=== PATIENT | female | born 1985 | race Caucasian/White ===

== ENCOUNTER → 2017-06-07 15:25 | Observation (INO) ==
--- NOTE | 2017-06-07 14:39 | OB/GYN Progress Note ---
Date of Encounter: 06/07/17 Time of Encounter: 14:45 - Assessment and Plan (1) with 36 to 37 weeks completed gestation Current Visit: Yes Status: Acute Patient receives appropriate care with midwives (2) PIH ( induced hypertension), antepartum Current Visit: Yes Status: Acute PIH labs WNL, protein creatinine ratio WNL at 0.17 Denies headaches/epigastric pain/visual disturbances BP on admission: 140s/70s Discussed with rod mill tender Masha Ibarra. Patient safe for discharge home with labor precautions, when to return to triage or call provider. Patient verbalizes understanding. (3) NST (non-stress test) reactive on surveillance Current Visit: Yes Status: Acute Baseline 135 bpm/ moderate/ +accels/ -decels FHT reassuring (4) Invasive ductal carcinoma of right breast Current Visit: Yes Status: Acute (5) History of delivery Current Visit: Yes Status: Acute Subjective - Subjective Principal diagnosis: Gestational hypertension Interval history: 31-year-old female at 36 weeks and 1 day presents to labor and delivery from office for PIH evaluation. Patient had elevated BP of 170/90 in office. Reports good movement. Patient denies leakage of fluid, vaginal bleeding, vaginal discharge. Denies headache, visual disturbances, epigastric pain, or lower extremity edema. She receives care with midwives. Blood Type: A+ GBS: negative Hep B: nonreactive HIV Ig: nonreactive T Pallidum: negative Rubella IgG: Positive Varicella IgG: Positive Antepartum ROS: movement normal Objective - Vital Signs Vital Signs: Intake and Output 06/06/17 06/07/17 06/07/17 23:59 07:59 15:59 Other: Weight 97 kg Patient Weight 06/07/17 23:59 Weight 97 kg - Exam FHR: auscultation normal, category 1 Abdomen: Present: normal appearance, soft, gravid Uterus: Present: normal, firm
[2017-06-07 14:44] LABS: Basophils % 0.4 %; Eosinophils # 0.1 K/mcL (0.0-0.6); Eosinophils % 1.4 %; Hematocrit 34.3 % (35.3-44.9); Hemoglobin 11.2 g/dL (11.5-15.4); Immature Granulocytes % 1.6 % (0-4); Lymphocytes # 1.5 K/mcL (0.6-4.6); Lymphocytes % 14.8 %; Mean Corpuscular HGB Conc 32.7 g/dL (31.6-35.5); Mean Corpuscular Hemoglobin 28.2 pg (28.0-33.3); Mean Corpuscular Volume 86.4 fL (83.0-100.0); Mean Platelet Volume 11.4 fL (9.4-12.4); Monocytes # 0.7 K/mcL (0.0-1.3); Monocytes % 6.9 %; Neutrophils # 7.6 K/mcL (1.6-8.9); Platelet Count 243 K/mcL (140-400); Red Blood Count 3.97 M/mcL (3.82-4.97); Red Cell Distribution Width 13.5 % (11.5-14.5); Segmented Neutrophils % 74.9 %
[2017-06-07 14:50] LABS: Bilirubin,Urine Negative (Negative); Blood,Urine Negative (Negative); Clarity,Urine Cloudy (Clear); Color,Urine Yellow (Yellow); Glucose,Urine (UA) Normal (Normal); Ketones,Urine Negative (Negative); Leukocyte Esterase,Urine Negative (Negative); Nitrite,Urine Negative (Negative); Protein,Urine Negative (Neg-Trace); Specific Gravity,Urine 1.011 (1.010-1.025); Urobilinogen,Urine Normal (Normal)
[2017-06-07 14:52] LABS: Bacteria,Urine None Seen per hpf (None-Few); Hyaline Casts,Urine None Seen per lpf (None-Few); RBC,Urine 0-3 per hpf (0-3); Squamous Epithelial Cell,Urine Many per lpf (None-Few); WBC,Urine 0-3 per hpf (0-3)
[2017-06-07 14:55] LABS: Amphetamine Screen,Urine Negative ng/mL (Cutoff=1000); Barbiturate Screen,Urine Negative ng/mL (Cutoff=200); Benzodiazepines Screen,Urine Negative ng/mL (Cutoff=200); Cannabinoid Screen,Urine Negative ng/mL (Cutoff = 50); Cocaine Screen,Urine Negative ng/mL (Cutoff= 300); Opiate Screen,Urine Negative ng/mL (Cutoff=300); Phencyclidine Screen,Urine Negative ng/mL (Cutoff=25)
[2017-06-07 15:04] LABS: Creatinine,Urine 42 mg/dL; Protein/Creatinine Ratio,Urine 0.17 mg/mg (0.00-0.20)
[2017-06-07 15:05] LABS: Alanine Aminotransferase 8 Units/L (7-52); Aspartate Amino Transferase 13 Units/L (13-39); BUN/Creatinine Ratio 11 (6-26); Blood Urea Nitrogen 5 mg/dL (6-20); Lactate Dehydrogenase 121 Units/L (140-271); Uric Acid 4.4 mg/dL (2.3-7.6); eGFR For African Americans > 60 (> 60); eGFR For Non-African Americans > 60 (> 60)
== END | disposition home or self-care (01) ==
LOC: 1NENULAB
PROVIDERS: ADMIT Obstetrics & Gynecology; ATTEND Obstetrics & Gynecology

== ENCOUNTER 2017-06-13 08:30 | Inpatient (IN) ==
[2017-06-13] MEDS ORDERED: Lidocaine 1% 20 ML MDV INFILT PRN (09:01)
[2017-06-13] MEDS ORDERED: *HR* Nalbuphine 20 MG/ML AMPUL IVP PRN (09:01)
[2017-06-13] MEDS ORDERED: Naloxone 0.4 MG/ML INJ IVP PRN (09:01)
[2017-06-13] MEDS ORDERED: Metoclopramide 10 MG/2 ML VIAL IVP PRN (09:01)
[2017-06-13] MEDS ORDERED: Famotidine 20 MG/2 ML VIAL IVP PRN (09:01)
[2017-06-13] MEDS ORDERED: Ringers Solution, Lactated 1,000 ML IVC SCH (09:15)
--- NOTE | 2017-06-13 10:18 | OB/GYN History & Physical ---
Date of Encounter: 06/13/17 Time of Encounter: 10:15 Assessment and Plan (1) 37 weeks gestation of Current visit: Yes Status: Acute Admit to labor and delivery for IOL Cytotec Consider Intracervical hall, AROM, and Pitocin May have nubain/epidural for pain control GBS negative Anticipate vaginal delivery POC per consult with Dr Mckinney. (2) NST (non-stress test) reactive on surveillance Current visit: No Status: Acute (3) Invasive ductal carcinoma of right breast Current visit: No Status: Acute (4) History of delivery Current visit: No Status: Acute History of Present Illness Chief complaint: Labor Evaluation HPI: Ms. Newman is a 32 year old female at 37 weeks and 0 days presents to labor and delivery for induction of labor secondary to S/P Mastectomy for Invasive Ductal Carcinoma. Patient's receives care with midwives. Patient admits to good movement. Denies vaginal bleeding, contractions, leakage of fluids. She denies headaches, vision disturbances, chest pain, SOB, epigastric pain, dysuria, f/c/n/v, diarrhea. She has no acute complaints or concerns at this time. Patient's complicated by history of delivery at 35 weeks, invasive ductal carcinoma of right breast grade II in this current , plan to start chemotherapy/radiation 2 weeks after delivery with [facility]. Blood type: A+ GBS: negative Hepatitis B antigen: nonreactive HIV Antibody: nonreactive T Pallidum: negative Rubella IgG: positive Varicella IgG: positive Past Med Surg Social Fam HX - Past Medical History Medical history: cancer Psychiatric history: anxiety, depression - Social History Smoking Status: Former smoker Smokeless Tobacco Status: No Alcohol use: none Drug use: none - Family History Mother Living Status: Hx Family Cancer: Yes Obstetrical History - Pregnancies : 5 Para: 2 Term: 1 : 1 Ab's: 2 Livin Medications and Allergies Ferrous Sulfate [Ferrous Sulfate] 1 tab .ROUTE DAILY 06/07/17 [History] Vit/Iron Fumarate/FA [ Tablet] 1 tab PO DAILY 06/07/17 [History ] 3 Allergy/AdvReac Type Severity Reaction Status Date / Time pseudoephedrine Allergy Anaphylaxis [facility]07[facility]17 [facility] Review of System OB All systems PM: reviewed and no additional remarkable complaints except as stated - Constitutional Constitutional ROS IM: as per HPI - Cardiovascular Cardiovascular: as per HPI - Respiratory Respiratory: as per HPI - Gastrointestinal Gastrointestinal: as per HPI - Genitourinary Genitourinary: as per HPI - Neurological Nerological: no headache(s) Exam - Constitutional Constitutional: well developed, well nourished, no acute distress, average body habitus - HEENT HEENT: Normocephaly - Neck Neck exam: full ROM - Lungs Respiratory exam: CTAB - Cardiovascular Cardiovascular exam: RRR, +S1, +S2 - Abdomen Abdomen: Present: bowel sounds normal, gravid, non tender - Extremities Extremities exam: full ROM, normal capillary refill, normal inspection, radial pulses palpable and symmetrical Deep Tendon Reflex Grade: 2+ Normal - Vagina Vagina: Present: normal moisture - Cervix Dilation: 0 (FT) Effacement: 50 Station: -2 - Uterus Uterus exam: Present: normal size (nontender, soft), normal contour Results All other labs normal. - VTE Reasons for not Prescribing Prophylaxis: Treatment not Indicated - Low risk for VTE - Attending Attestation I examined this patient and my medical decision-making was reviewed with the Resident Physician. I agree with the documented findings, disposition and treatment plan as described. Ju Marte CNM
[2017-06-13 11:10] LABS: Basophils # 0.1 K/mcL (0.0-0.2); Basophils % 0.4 %; Eosinophils # 0.1 K/mcL (0.0-0.6); Hematocrit 34.9 % (35.3-44.9); Hemoglobin 11.4 g/dL (11.5-15.4); Immature Granulocytes % 1.5 % (0-4); Lymphocytes # 1.5 K/mcL (0.6-4.6); Lymphocytes % 11.8 %; Mean Corpuscular HGB Conc 32.7 g/dL (31.6-35.5); Mean Corpuscular Hemoglobin 28.6 pg (28.0-33.3); Mean Corpuscular Volume 87.7 fL (83.0-100.0); Mean Platelet Volume 11.5 fL (9.4-12.4); Monocytes # 0.6 K/mcL (0.0-1.3); Monocytes % 4.9 %; Platelet Count 221 K/mcL (140-400); Red Blood Count 3.98 M/mcL (3.82-4.97); Red Cell Distribution Width 13.8 % (11.5-14.5); Segmented Neutrophils % 80.4 %
[2017-06-13] MEDS: miSOPROStol 25 MCG TABLET PO PRN ×2 (11:15→15:55)
[2017-06-13 11:16] LABS: Amphetamine Screen,Urine Negative ng/mL (Cutoff=1000); Barbiturate Screen,Urine Negative ng/mL (Cutoff=200); Benzodiazepines Screen,Urine Negative ng/mL (Cutoff=200); Cannabinoid Screen,Urine Negative ng/mL (Cutoff = 50); Cocaine Screen,Urine Negative ng/mL (Cutoff= 300); Opiate Screen,Urine Negative ng/mL (Cutoff=300); Phencyclidine Screen,Urine Negative ng/mL (Cutoff=25)
[2017-06-13] MEDS ORDERED: Ondansetron 4 MG/2 ML VIAL IVP PRN (15:31)
--- NOTE | 2017-06-13 16:01 | OB Labor Progress Note ---
Date of Encounter: 06/13/17 Time of Encounter: 15:58 Labor Progress Note - Subjective Subjective: Patient doing well in bed. States pain is a 1 or 2 out of ten - Vital Signs Vital Signs: VSS - Cervix Cervix: 1-2/80/-2 - Heart Tones Heart Tones: 135 category I - [place]: Irregular contractions - Interventions Interventions: Placed intracervical hall bulb with 45ml of sterile water without difficulty Patient and fetus tolerated well. - Plan Plan: Continue routine labor management Second dose of oral cytotec GBS negative Consider AROM and/or pitocin after hall bulb Patient may have nubain/epidural for pain control Anticipate vaginal delivery POC per consult with Dr Mckinney.
[2017-06-13] MEDS ORDERED: *HR* FentaNYL (PF) 100 MCG/2 ML VIAL EP ONE (20:41)
[2017-06-13] MEDS ORDERED: Bupivacaine-MPF 0.25% 10 ML VIAL EP ONE (20:41)
[2017-06-13] MEDS ORDERED: Bupivacaine-MPF 0.25% 10 ML VIAL ONE (20:43)
[2017-06-13] MEDS ORDERED: *HR* FentaNYL (PF) 100 MCG/2 ML VIAL ONE (20:43)
[2017-06-13] MEDS ORDERED: Epidural Premix (fent/bupiv) 110 ML EP SCH (20:45)
[2017-06-13] MEDS ORDERED: Epidural Premix (fent/bupiv) 110 ML EP ONE (20:46)
--- NOTE | 2017-06-13 21:19 | Anesthesia Evaluation PreOp ---
Date of Encounter: 06/13/17 Time of Encounter: 20:45 - Past History Planned Operation: DELLA Cardiac History: Other (heart murmor determined to be benign per echo) Pulmonary History: Denies Any Significant HX STATION USHER History: Denies Any Significant HX Other Medical History: Other (active breast cancer) Anesthesia History: No Prior Anesthetic Complications (denies personal and family h/o GA complications), Past Anesthesia (DELLA x 2 that weren't effective, according to patient) : Yes Test: Positive Alcohol Use: none Drug use: none Medications and Allergies Ferrous Sulfate [Ferrous Sulfate] 1 tab .ROUTE DAILY 06/07/17 [History] Vit/Iron Fumarate/FA [ Tablet] 1 tab PO DAILY 06/07/17 [History ] 3 Allergy/AdvReac Type Severity Reaction Status Date / Time pseudoephedrine Allergy Anaphylaxis Verified 06/07/17 13:53 [From [facility]] - Meds/Allergy Pre-op Review Medications Reviewed: Yes Allergies Reviewed: Yes Beta Blockers on Current Med List: No Anesthesia Results - Labs 06/13/17 11:00 Anesthesia Exam 134/78, HR 98, RR 14 Height: 1.6m Weight: 97kg NPO (# of Hours): solids > 8hrs Pain Scale: 1 Pain Scale Used: Numeric (1 - 10) - HEENT Pupil (Motor): Pupils equal Mallampati: I Teeth: Normal Oral Opening: Greater than 3 - STATION USHER LOC: Oriented STATION USHER Motor: Normal RUE, Normal LUE, Normal RLE, Normal LLE, Normal Face STATION USHER Sensory: Normal: RUE, LUE, RLE, LLE, Face - Cardiac Rhythm: Regular Murmur: None - Pulmonary Breath Sounds: bilateral Clear Respiratory Effort: Symmetrical Anesthesia Assess/Plan ASA Score: 3 (active cancer) Modified [place] Scale for Level of Consciousness: Cooperative, oriented, and tranquil Anesthetic Plan: Regional Autologous Blood: No Monitoring Plan: Standard Monitors Recovery Plan: Other
--- NOTE | 2017-06-13 21:22 | Anesthesia Procedures ---
Date of Encounter: 06/13/17 Time of Encounter: 21:21 Procedures: Anesthesia - Epidural/Spinal Patient ID/Chart reviewed: Yes Patient examined: Yes OB Eval: Gestational age: 37 weeks 0 days OB Eval: : 5 OB Eval: Hx Para: 2 OB Eval: Dilated at (cm): 4 OB Eval: Contractions: Non-stressed pattern Consent Obtained: Yes Supplemental Oxygen: None/Room Air Site Prep: Aseptic Technique, Sterile prep and drape, Povidone-Iodine 1% Patient position: upright Local Anesthetic: Lidocaine 1% Amount of Local Anesthetic used: 3 Touhy Needle Gauge: 18 Touhy Needle Depth (cm): 6 Catheter Depth at Skin (cm): 11 Test Dose (1.5% Lido + Epi): Volume given (mls): 5 Test Dose Result: Negative Loading Dose: 0.25% Marcaine (mls): 5 Loading Dose: Fentanyl (mcg): 100 Loading Dose Administered: Thru Catheter Infusion Med: 0.125% Bupivacaine w/ 2 mcg/ml Fentanyl Infusion Rate (mls/hr): [address]: Tegaderm, Tape Interspace Used: L4-L5 Loss of Resistance (ANASTASIA): Yes Blood: No CSF: No Paresthesia: No Procedure: successful x 1st attempt; patient tolerated well Vitals + FHT's: please see Jax ANG's electronic records for VS entry
--- NOTE | 2017-06-13 22:46 | OB Labor Progress Note ---
Date of Encounter: 06/13/17 Time of Encounter: 22:43 Labor Progress Note - Subjective Subjective: Patient resting comfortably in bed after epidural. - Vital Signs Vital Signs: VSS - Cervix Cervix: 4/80/-2 - Heart Tones Heart Tones: 135 baseline category I - [place]: Contractions every 2-4 minutes - Interventions Interventions: AROM for clear fluid, IUPC, and FSE placed without difficulty. Fetus and patient tolerated well. - Plan Plan: Continue routine labor management GBS negative Consider pitocin if needed for labor augmentation Encourage frequent position changes Anticipate vaginal delivery POC per consult with Dr Mckinney.
[2017-06-13] MEDS: Oxytocin 20 units/ LR 1000 mL 20 UNIT/1,000 ML BAG IVC SCH (23:40)
[2017-06-14] MEDS ORDERED: Epidural Premix (fent/bupiv) 110 ML EP ONE ×2 (02:10→07:17)
[2017-06-14] MEDS ORDERED: 0.9 % Sodium Chloride 1,000 ML ONE (05:00)
--- NOTE | 2017-06-14 06:07 | Anesthesia Progress Note ---
Date of Encounter: 06/14/17 Time of Encounter: 06:05 Anesthesia Note - Note Note: Called to patient bedside to evaluate breakthrough labor pain; patient describes bilateral pelvic floor pain that is 4-5/10 intensity. 5mL of 0.25% bupivicaine administered via epidural catheter. Patient reports minimal improvement in pain level. Patient reports B/L LE paresis. 06/14/17 06:05
[2017-06-14] MEDS ORDERED: *HR* Ropivacaine/PF 0.5% 20 ML VIAL ONE (09:00)
--- NOTE | 2017-06-14 09:15 | Anesthesia Progress Note ---
Date of Encounter: 06/14/17 Time of Encounter: 09:13 Anesthesia Note - Note Note: 06/14/17 09:13 Called to patient bedside with complaints of pain in pelvic floor of 5 of 10. Ropivicaine 0.5% 7ml bolus administered. Pt stating that she has used additional pump boluses fairly consistentlyl. Epidural pump increased from 14 to 16ml/hr. VSS and FHT stable.
--- NOTE | 2017-06-14 10:43 | OB/GYN Procedure Note ---
Delivery - Delivery Date: 06/14/17 Provider: Maegan Elizalde (Amanda Toro, PGY2) Intrapartum events: none Delivery induction: AROM, oxytocin, hall, misoprostol Delivery monitor: external FHT, external uterine, internal FHT, internal uterine Anesthesia: epidural Estimated Blood Loss: 450 - (s) A Delivery Date: 06/14/17 Delivery Time: 10:00 Presentation: vertex Position: OA Route of delivery: Gender: Male Viability: Viable Pounds: 6 Ounces: 14 Weight Gram: 3105 kg at 1 minute: 8 at 5 mins: 9 Shoulder Dystocia: not encountered Specimens collected: cord blood Placenta: spontaneous Cord: nuchal cord (x2), 3 umbilical vessels, nuchal reduced - Repair Episiotomy: none Laceration Description: Perineal - 2nd Degree - Complications Delivery complications: none Delivery comments: Induction of labor for breast cancer diagnosis and need to initiate chemotherapy treatment. Induction with pitocin, cytotec, cervical hall. Progressed to complete, maternal bearing down efforts to of live born male. Vertex delivered OA, double nuchal cord identified and manually reduced. Shoulders and body easily followed with compound presentation of right hand next to cheek. No shoulder distocia encountered. placed on maternal abdomen for drying and stimulation. APGARS 8/9. Placenta delivered spontaneously (Gabriel) and was complete upon inspection. Fundus massaged until firm, pitocin was started per policy. Second degree perineal laceration repaired with 3-0 vicryl in the usual fashion. EBL 450. All sponge and needle counts correct. Mother and left bonding in skin to skin. Amanda Toro PGY2 present and assisted with delivery and repair. - Disposition Mom disposition: stable in LDR disposition: stable in LDR
[2017-06-14] MEDS ORDERED: Lanolin 28 GM TUBE TP PRN (11:16)
[2017-06-14] MEDS ORDERED: Benzocaine/Menthol 56 GM AEROSOL SPRAY TP PRN (11:16)
[2017-06-14] MEDS ORDERED: Oxytocin 20 units/ LR 1000 mL 20 UNIT/1,000 ML BAG IVC SCH (11:16)
[2017-06-14] MEDS: Oxytocin 20 units/ LR 1000 mL 20 UNIT/1,000 ML BAG IVC SCH (11:18)
[2017-06-14] MEDS: Ibuprofen 600 MG TABLET PO PRN ×2 (14:00→20:34)
[2017-06-14] MEDS: Acetaminophen 325 MG TABLET PO PRN (18:16)
[2017-06-15] MEDS: Acetaminophen 325 MG TABLET PO PRN ×2 (00:28→16:04)
[2017-06-15 04:38] LABS: Basophils # 0.1 K/mcL (0.0-0.2); Basophils % 0.4 %; Eosinophils # 0.4 K/mcL (0.0-0.6); Eosinophils % 2.5 %; Hematocrit 29.2 % (35.3-44.9); Immature Granulocytes % 0.7 % (0-4); Lymphocytes # 2.5 K/mcL (0.6-4.6); Lymphocytes % 17.3 %; Mean Corpuscular HGB Conc 32.9 g/dL (31.6-35.5); Mean Corpuscular Hemoglobin 28.7 pg (28.0-33.3); Mean Corpuscular Volume 87.2 fL (83.0-100.0); Mean Platelet Volume 11.8 fL (9.4-12.4); Monocytes # 1.3 K/mcL (0.0-1.3); Monocytes % 8.5 %; Neutrophils # 10.4 K/mcL (1.6-8.9); Platelet Count 182 K/mcL (140-400); Red Blood Count 3.35 M/mcL (3.82-4.97); Red Cell Distribution Width 14.1 % (11.5-14.5); Segmented Neutrophils % 70.6 %
[2017-06-15 04:40] LABS: Hemoglobin 9.6 g/dL (11.5-15.4)
[2017-06-15] MEDS: Ibuprofen 600 MG TABLET PO PRN ×3 (06:25→20:51)
[2017-06-15] MEDS: Prenatal Vit/FA 1 EACH TABLET PO SCH (08:07)
--- NOTE | 2017-06-15 11:03 | OB/GYN Progress Note ---
Date of Encounter: 06/15/17 Time of Encounter: 10:59 - Assessment and Plan (1) Normal vaginal delivery Current Visit: Yes Status: Acute PPD #1 Continue routine care Pain well controlled with by mouth meds Ice to perineum when necessary Dermoplast to perineum when necessary Lochia light Requesting discharge tomorrow (2) Invasive ductal carcinoma of right breast Current Visit: Yes Status: Acute Subjective - Subjective Interval history: Feeling well. No dizziness. No perineal discomfort. Cramping minimal, using ibuprofen. Bottlefeeding . Voiding without difficulty. Passing flatus, has had BM. Tolerating regular diet. Patient reports: appetite normal, voiding normally, pain well controlled, ambulating normally [place]: doing well, bottle feeding Objective - Latest Vital Signs Latest vital signs: Vital Signs Temp Pulse Pulse Resp BP Pulse Ox 06/15/17 08:11 98.6 F 95 16 116/73 97 06/15/17 03:55 14 06/15/17 03:40 98.0 F 75 16 106/70 97 06/14/17 20:30 80 14 06/14/17 19:39 97.9 F 81 16 119/76 98 06/14/17 14:48 98.9 F 80 16 115/69 97 06/14/17 12:40 98.6 F 94 16 130/78 97 Intake and Output 06/14/17 06/15/17 06/15/17 23:59 07:59 15:59 Intake Total 240 / 240 500 / 500 Output Total 1620 / 1620 Balance -1380 / -1380 500 / 500 Intake: Oral 240 / 240 500 / 500 Output: Urine 1620 / 1620 Other: Weight 95.753 kg Patient Weight 06/15/17 23:59 Weight 95.753 kg - Exam Lungs: bilateral: normal Chest: Normal S1, Normal S2 Extremities: Present: normal Abdomen: Present: normal appearance, soft Uterus: Present: normal, firm Uterus Position: At Umbilicus, Midline - Labs Labs: Laboratory Results - last 24 hr 06/15/17 04:18 WBC 14.7 H RBC 3.35 L Hgb 9.6 L D Hct 29.2 L MCV 87.2 MCH 28.7 MCHC 32.9 RDW 14.1 Plt Count 182 MPV 11.8 Immature Gran % 0.7 Seg Neutrophils % 70.6 Lymphocytes % 17.3 Monocytes % 8.5 Eosinophils % 2.5 Basophils % 0.4 Neutrophils # 10.4 H Lymphocytes # 2.5 Monocytes # 1.3 Eosinophils # 0.4 Basophils # 0.1
[2017-06-16] MEDS: Ibuprofen 600 MG TABLET PO PRN ×2 (02:43→10:11)
[2017-06-16] MEDS: Acetaminophen 325 MG TABLET PO PRN (07:55)
[2017-06-16] MEDS: Prenatal Vit/FA 1 EACH TABLET PO SCH (07:56)
[2017-06-16 08:09] VITALS: BP 136/86
--- NOTE | 2017-06-16 08:56 | Discharge Summary ---
Date of Encounter: 06/16/17 Time of Encounter: 08:54 - Discharge Diagnosis (1) anemia Priority: Secondary Status: Acute Comments: will discharge home on iron (2) Invasive ductal carcinoma of right breast Priority: Primary Status: Acute Comments: Treatment plan in place with KENIA Cardoza. (3) Normal vaginal delivery Priority: Primary Status: Acute Comments: Pt states pain well managed on po pain medication. Voiding and stooling without difficulty, . desires discharge - Discharge Medications Prescriptions: Ibuprofen [Motrin] 600 mg PO Q6HR PRN #60 tablet PRN Reason: Cramping Docusate [Colace] 100 mg PO BID #60 capsule Ferrous Sulfate 325 mg PO DAILY #60 tablet Home Medications: Ferrous Sulfate 1 tab .ROUTE DAILY 06/07/17 [History] Acetaminophen [Tylenol] 650 mg PO Q6HR PRN tablet 06/16/17 [Rx] Benzocaine/Menthol [place] [Dermoplast Stanton] 1 appl TP QID PRN aerosol 06/16/17 [Rx] Docusate [Colace] 100 mg PO BID #60 capsule 06/16/17 [Rx] Ferrous Sulfate 325 mg PO DAILY #60 tablet 06/16/17 [Rx] Ibuprofen [Motrin] 600 mg PO Q6HR PRN #60 tablet 06/16/17 [Rx] Lanolin 1 appl TP QID PRN tube 06/16/17 [Rx] Vit/FA 1 each PO DAILY tablet 06/16/17 [Rx] Allergies/Adverse Reactions: 3 Allergy/AdvReac Type Severity Reaction Status Date / Time pseudoephedrine Allergy Anaphylaxis Verified 06/07/17 13:53 [From [facility]] Data Procedures and tests throughout hospitalization: Laboratory Tests 06/13/17 06/13/17 06/14/17 11:00 11:00 01:10 WBC 12.4 H RBC 3.98 Hgb 11.4 L Hct 34.9 L MCV 87.7 MCH 28.6 MCHC 32.7 RDW 13.8 Plt Count 221 MPV 11.5 Immature Gran % 1.5 Seg Neutrophils % 80.4 Lymphocytes % 11.8 Monocytes % 4.9 Eosinophils % 1.0 Basophils % 0.4 Neutrophils # 10.0 H Lymphocytes # 1.5 Monocytes # 0.6 Eosinophils # 0.1 Basophils # 0.1 Urine Opiates Screen Negative Ur Barbiturates Screen Negative Ur Phencyclidine Scrn Negative Ur Amphetamines Screen Negative U Benzodiazepines Scrn Negative Urine Cocaine Screen Negative U Marijuana (THC) Screen Negative Blood Type A POSITIVE Antibody Screen NEGATIVE Crossmatch See Detail 06/15/17 04:18 WBC 14.7 H RBC 3.35 L Hgb 9.6 L D Hct 29.2 L MCV 87.2 MCH 28.7 MCHC 32.9 RDW 14.1 Plt Count 182 MPV 11.8 Immature Gran % 0.7 Seg Neutrophils % 70.6 Lymphocytes % 17.3 Monocytes % 8.5 Eosinophils % 2.5 Basophils % 0.4 Neutrophils # 10.4 H Lymphocytes # 2.5 Monocytes # 1.3 Eosinophils # 0.4 Basophils # 0.1 Urine Opiates Screen Ur Barbiturates Screen Ur Phencyclidine Scrn Ur Amphetamines Screen U Benzodiazepines Scrn Urine Cocaine Screen U Marijuana (THC) Screen Blood Type Antibody Screen Crossmatch Date of admission: 06/13/17 08:47 Primary care physician: PCP MANNY Consults: 06/14/17 11:16 Consult to Superintendent Transportation [CONS] Routine Comment: Vaginal delivery, consult needed Discharging clinician: Maegan Elizalde Anticipated date of discharge: 06/16/17 - Patient Status Disposition: Home, Self-Care Condition: Good Functional capacity at discharge: independent ambulation Overall status at discharge: patient is back to baseline - Discharge Instructions Instructions: Anemia (GEN) Follow Up With: NONE,PCP [Primary Care Provider] - - Diet and Activity Activity: resume usual activities as tolerated Diet: regular diet Hospital Course Reason for admission: induction of labor, IUP at term Delivery: Episiotomy: none Laceration: 2nd degree Other procedures: none complications: none Discharge diagnosis: IUP at term delivered baby: male Hospital course: Delivery - Delivery Date: 06/14/17 Provider: Maegan Elizalde (Amanda Toro, PGY2) Intrapartum events: none Delivery induction: AROM, oxytocin, hall, misoprostol Delivery monitor: external FHT, external uterine, internal FHT, internal uterine Anesthesia: epidural Estimated Blood Loss: 450 - Infant (s) Infant A Infant Delivery Date: 06/14/17 Infant Delivery Time: 10:00 Presentation: vertex Position: OA Route of delivery: Gender: Male Viability: Viable Pounds: 6 Ounces: 14 Weight Gram: 3105 kg at 1 minute: 8 at 5 mins: 9 Shoulder Dystocia: not encountered Specimens collected: cord blood Placenta: spontaneous Cord: nuchal cord (x2), 3 umbilical vessels, nuchal reduced - Repair Episiotomy: none Laceration Description: Perineal - 2nd Degree - Complications Delivery complications: none Delivery comments: Induction of labor for breast cancer diagnosis and need to initiate chemotherapy treatment. Induction with pitocin, cytotec, cervical hall. Progressed to complete, maternal bearing down efforts to of live born male. Vertex delivered OA, double nuchal cord identified and manually reduced. Shoulders and body easily followed with compound presentation of right hand next to cheek. No shoulder distocia encountered. placed on maternal abdomen for drying and stimulation. APGARS 8/9. Placenta delivered spontaneously (Gabriel) and was complete upon inspection. Fundus massaged until firm, pitocin was started per policy. Second degree perineal laceration repaired with 3-0 vicryl in the usual fashion. EBL 450. All sponge and needle counts correct. Mother and infant left bonding in skin to skin. Amanda Toro PGY2 present and assisted with delivery and repair. - Disposition Mom disposition: stable in PP and appropriate for discharge. Time Attestation: Total time spent providing and/or coordinating discharge services: Time Spent: Less than 30 minutes Exam - Constitutional Vitals: Temp Pulse Resp BP Pulse Ox 99.2 F 83 16 136/86 97 06/16/17 07:54 06/16/17 07:54 06/16/17 07:54 06/16/17 07:54 06/16/17 07:54 General appearance IM: A&O X 3 - Respiratory Respiratory exam: Present: CTAB - Cardiovascular Cardiovascular exam IM: Present: RRR - GI/Abdominal GI/Abdominal exam IM: soft - Uterine Tone: Firm Uterus Position: 2 Fingers Below Umbilicus - Extremities Exam Extremities exam IM: Present: normal capillary refill, normal inspection, pedal edema - Neurological Exam Neurological exam: normal gait, oriented X3 - Psychiatric Additional comments: reports good mood
== END 2017-06-16 11:23 | disposition home or self-care (01) | DRG 775 ==
LOC: 1NENULAB 08:47 → 1NENUOBS 06-14 12:46
PROVIDERS: ADMIT Registered Nurse; ATTEND Registered Nurse